=== PATIENT | male | born 1995 | race Caucasian/White ===

== ENCOUNTER 2023-06-08 12:21 | Emergency (ER) | payer BC ==
[~2023-06-08] VITALS: Ht 180.3 cm; Wt 85.0 kg
[~2023-06-08 12:21] MED LIST: MULTIVITAMIN1 CTB PO; STRATTERA40 MG PO
[2023-06-08 12:30] VITALS: TEMP 98.2
[2023-06-08 13:28] LABS: BASO # 0.1 K/mm3 (0.0-0.2); EOS % 0.7 % (0.0-4.0); GRAN # 3.7 K/mm3 (1.4-6.5); GRAN % 61.7 % (42.2-75.2); HEMATOCRIT 47.3 % (42.0-52.0); HEMOGLOBIN 16.4 g/dl (13.5-18.0); LYMPH # 1.7 K/mm3 (1.2-3.4); LYMPH % 28.6 % (20.0-51.0); MEAN CELL VOLUME 84 fl (80.0-100.0); MEAN CORPUSCULAR HEMOGLOBIN 29 pg (27-31); MEAN CORPUSCULAR HGB CONC 35 g/dl (33.0-37.0); MEAN PLATELET VOLUME 10.5 fl (7.4-10.4); MONO # 0.5 K/mm3 (0.1-0.6); MONO % 7.7 % (1.7-9.3); PLATELET COUNT 219 K/mm3 (130-400); RED BLOOD COUNT 5.61 M/mm3 (4.20-5.60); REDCELL DISTRIBUTION WIDTH-CV 12.4 % (11.5-14.5)
[2023-06-08 13:52] LABS: ALANINE AMINOTRANSFERASE 43 U/L (0-55); ALBUMIN 4.4 gm/dL (3.5-5.0); ALKALINE PHOSPHATASE 79 U/L (40-150); ANION GAP 15 mmol/L (7-16); AST,SGOT 42 U/L (5-34); BILIRUBIN,TOTAL 0.9 mg/dL (0.2-1.2); BLOOD UREA NITROGEN 9 mg/dL (9-21); CARBON DIOXIDE 19 mmol/L (22-29); CHLORIDE 106 mmol/L (98-107); CREATININE, serum 0.89 mg/dL (0.72-1.25); GLUCOSE 89 mg/dL (70-99); POTASSIUM 4.3 mmol/L (3.5-4.5); SODIUM 140 mmol/L (136-145); TOTAL PROTEIN 7.7 gm/dL (6.2-8.1)
[2023-06-08 14:12] LABS: TROPONIN-I < 0.010 ng/mL (0.00-0.033)
[2023-06-08 14:30] VITALS: BP 124/84; PULSE 76
== END 2023-06-08 14:30 | disposition home or self-care (01) ==
LOC: COL.ER 12:21
PROVIDERS: Physician Assistant
DX: M25.512 Pain in left shoulder (principal); R07.89 Other chest pain
CPT/HCPCS: J1885